=== PATIENT | female | born 1945 | race Caucasian/White ===

== ENCOUNTER → 2020-08-29 | Outpatient (CLI) | payer OTHER | LOC: LABNPT 08:27 | PROVIDERS: ATTEND Family Medicine | DX: Z20.822 Contact with and (suspected) exposure to COVID-19 (principal) | CPT/HCPCS: 87635 ==

== ENCOUNTER 2020-11-29 13:00 | Outpatient (RCR) | payer BC | END 2020-11-29 16:35 | disposition home or self-care (01) | PROVIDERS: ATTEND Family Medicine | DX: J38.5 Laryngeal spasm (principal); M62.838 Other muscle spasm; M54.2 Cervicalgia; R49.0 Dysphonia ==

== ENCOUNTER → 2021-02-07 | Outpatient (CLI) | payer BC ==
--- NOTE | 2021-02-11 13:53 | Diagnostic Imaging Report ---
INDICATION: Routine screening. Correlation is made to prior mammogram 02/11/2020. 2-D and 3-D bilateral screening mammography was performed with CAD. Scattered fibroglandular densities are identified bilaterally. The parenchymal pattern appears stable. There are occasional benign calcifications. There is a benign circumscribed nodule medial right breast. No spiculated mass or malignant appearing microcalcifications are seen. Axillae are unremarkable. IMPRESSION: BI-RADS Category 2 No mammographic features suspicious for malignancy are identified. ACR BI-RADS Category 2: Benign findings. Result letter will be mailed to the patient. Note: At least 10% of breast cancer is not imaged by mammography. Dictated by: Dictated on workstation # [id number]
== END ==
LOC: RAD 10:46
PROVIDERS: ATTEND Nurse Practitioner Family
DX: Z12.31 Encounter for screening mammogram for malignant neoplasm of breast (principal)
CPT/HCPCS: 77063; 77067

== ENCOUNTER → 2022-02-25 | Outpatient (CLI) | payer BC ==
--- NOTE | 2022-02-25 10:03 | Diagnostic Imaging Report ---
INDICATION: Postmenopausal screening COMPARISON: None FINDINGS: AP Spine L1-L4: [BMD (g/cm2): 0.971] [T-Score: -1.9] [Z-Score: -0.6] [BMD Previous: na] [BMD % Change: na] LT Hip Neck: [BMD (g/cm2): 0.803] [T-Score: -1.7] [Z-Score: -0.1] LT Hip Total: [BMD (g/cm2):0.944] [T-Score:-0.5] [Z-Score: 0.9] [BMD Previous: na] [BMD % Change: na] RT Hip Neck: [BMD (g/cm2):0.781] [T-Score:-1.8] [Z-Score:-0.2] RT Hip Total: [BMD (g/cm2):0.917] [T-score:-0.7] [Z-Score:0.7] [BMD Previous:na] [BMD % Change:na] *Indicates significant change from prior examination based on 95% confidence level. World Health Organization criteria for BMD interpretation classify patients as Normal (T-score at or above -1.0), Osteopenic (T-score between -1.0 and -2.5) or Osteoporotic (T-score at or below -2.5). LIMITATIONS AND MODIFICATION: None. FRACTURE RISK (FRAX SCORE): The ten year probability of (%): Major Osteoporotic Fracture: [12.6] Hip Fracture: [3.0] IMPRESSION: 1. Osteopenia (Low bone mass). 2. See below National Osteoporosis Foundation guidelines on when to potentially initiate pharmacologic therapy. Based on the National Osteoporosis Foundation Guidelines, pharmacologic treatment should be initiated in any of the following, unless clinical conditions suggest otherwise: * Any patient with prior fragility fracture of the hip or vertebrae. A spine fracture indicates 5X risk for subsequent spine fracture and 2X risk for subsequent hip fracture. * Osteoporosis (T-score <-2.5). * Postmenopausal women and men age 50 and older with low bone mass/osteopenia (T-score between -1.0 and -2.5) by DXA and 10-year major osteoporotic fracture greater than 20% or a 10-year probability of hip fracture greater than 3%. These fracture risks are supplied above in the FRAX score, if applicable. * Clinician judgement and/or patient preferences may indicate treatment for people with 10-year fracture probabilities above or below these levels. Dictated by: Dictated on workstation # [id number]
--- NOTE | 2022-02-25 12:57 | Diagnostic Imaging Report ---
INDICATION: Routine screening. COMPARISON: 02/07/2021 and 02/13/2020. TECHNIQUE: 2D and 3D bilateral screening mammography was performed with CAD. FINDINGS: Scattered fibroglandular densities are identified bilaterally. There is a circumscribed density that has developed in the lower inner right breast at mid depth. Additional views are recommended. The left breast is unremarkable. No spiculated mass is seen. No malignant-appearing microcalcifications are identified. There are benign calcifications noted. The axillae are unremarkable. IMPRESSION: Right breast density. Additional views are recommended for further evaluation. ACR BI-RADS Category 0: Incomplete. (Needs additional imaging evaluation). Result letter will be mailed to the patient. Note: At least 10% of breast cancer is not imaged by mammography. Dictated by: Dictated on workstation # [id number]
== END ==
LOC: RAD 09:15
PROVIDERS: ATTEND Nurse Practitioner Family
DX: Z12.31 Encounter for screening mammogram for malignant neoplasm of breast (principal); Z13.820 Encounter for screening for osteoporosis; M85.88 Other specified disorders of bone density and structure, other site; Z78.0 Asymptomatic menopausal state
CPT/HCPCS: 77063; 77067; 77080

== ENCOUNTER → 2022-03-05 | Outpatient (CLI) | payer BC ==
--- NOTE | 2022-03-05 13:59 | Diagnostic Imaging Report ---
Indication: Right breast density. Patient presents for additional views. Correlation is made with screening study from 02/25/2022. Unilateral right 2-D and 3-D diagnostic mammography was performed. This includes spot compression CC and MLO views as well as conventional 90 degrees lateral views. CAD is utilized. The current study was also evaluated with a Computer Aided Detection (CAD) system. There is a persistent fairly well-circumscribed nodule in the lower inner right breast approximately 5-6 cm from the nipple. No suspicious calcifications are seen. IMPRESSION: BI-RADS 0 Persistent density lower inner right breast, as described. Further evaluation with ultrasound is recommended and will be performed today. ACR BI-RADS Category 0: Incomplete. (Needs additional imaging evaluation). Result letter will be mailed to the patient. Note: At least 10% of breast cancer is not imaged by mammography. Dictated by: Dictated on workstation # [id number]
--- NOTE | 2022-03-05 17:40 | Diagnostic Imaging Report ---
INDICATION: Right breast density. COMPARISON: Correlation is made with diagnostic mammogram earlier the same day and screening mammogram from 02/25/2022. FINDINGS: Sonographic interrogation of the lower inner right breast demonstrates a simple cyst at the 4:00 location, 5 cm from the nipple, measuring 7 mm x 4 mm x 5 mm. This correlates with the density noted mammographically. No internal vascularity is seen. No other masses are detected. IMPRESSION: Simple cyst at the 4:00 location in right breast, 5 cm from the nipple, corresponding with the mammographic density. The patient may return to routine annual screening mammography. ACR BI-RADS Category 2: Benign findings. Result letter will be mailed to the patient. Note: At least 10% of breast cancer is not imaged by mammography. Dictated by: Dictated on workstation # [id number]
== END ==
LOC: RAD 12:45
PROVIDERS: ATTEND Nurse Practitioner Family
DX: N60.01 Solitary cyst of right breast (principal)

== ENCOUNTER → 2022-04-09 | Outpatient (CLI) | payer BC | END | disposition home or self-care (01) | LOC: PREOP 05:35 | PROVIDERS: ATTEND Internal Medicine | DX: Z01.818 Encounter for other preprocedural examination (principal); R19.5 Other fecal abnormalities ==

== ENCOUNTER 2022-04-18 09:04 | Day surgery (SDC) | payer BC ==
--- NOTE | 2022-04-09 09:12 | HISTORY AND PHYSICAL ---
DATE OF SERVICE: COLONOSCOPY HISTORY AND PHYSICAL HISTORY OF PRESENT ILLNESS: The patient is a 76-year-old white female referred by CLIVE Sneed working for Dr. Dudley. She was referred due to a positive Cologuard. The patient denies abdominal pain, change in bowel habits, melena or bright red blood per rectum or change in weight. She is not aware of any family history for colon cancer. She reports one other colonoscopy over 15 years ago that she does not recall if there are any problems with. 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 She has a history of depression. No known history of cardiovascular disease. FAMILY HISTORY: Father had a history of diabetes and coronary artery disease as well as depression and mother had a history of coronary artery disease with arthritis with no reported malignancy running in the family. PAST SURGICAL HISTORY: She had a in , eye surgery in 2013, tubal ligation in 1986. SOCIAL HISTORY: She is with one child. No past smoking history with occasional small volume alcohol consumption. REVIEW OF SYSTEMS: CONSTITUTIONAL: Denies night sweats, chills, fever, change in weight. PULMONARY: Denies cough, wheezing or shortness of breath. GASTROINTESTINAL: As noted in the HPI. CARDIOVASCULAR: Denies orthopnea, PND, pedal edema, chest discomfort or syncope. PHYSICAL EXAMINATION: GENERAL: Reveals a white female appeared to be in no acute distress. VITAL SIGNS: Weight 172 pounds. Initial blood pressure 170/110, at the end of the interview 145/90, heart rate 70 and regular. HEENT: Unremarkable. Oropharynx clear. CHEST Clear to auscultation. CARDIOVASCULAR: Reveals a regular rate and rhythm without murmur, S3 or S4. ABDOMEN: Soft, supple without tenderness, mass, organomegaly or bruits. Bowel sounds positive. EXTREMITIES: Reveal no cyanosis, clubbing or edema. ASSESSMENT AND PLAN: The patient is being set up for diagnostic colonoscopy due to positive Cologuard. Discussed the ramifications of positive Cologuard and just about 4% chance of actually finding an underlying colon cancer. The patient is concerned about being able to keep the prep down, so she will take 4 mg of Zofran at least a half an hour prior to split dose of colyte as there were no other options covered. Electronic medical record was reviewed, and questions were answered. I thank you for the referral of this pleasant lady. Job ID: [id number] DocumentID: [id number] Dictated Date: 04/02/2022 15:58:10 Supervisor Publications Date: 04/02/2022 16:19:12 Dictated By: GILMA THEODORE MD MTDD
[~2022-04-18] VITALS: Ht 170.2 cm; Wt 79.4 kg
[2022-04-18 09:20] VITALS: BP 125/77
[2022-04-18] MEDS ORDERED: LACTATED RINGERS 1,000 ML IV STA (09:37)
[2022-04-18] MEDS ORDERED: LISI10TA25 PO (09:45)
--- NOTE | 2022-04-18 10:05 | Pre-Op Note & Conscious Sedat ---
Pre-Operative Progress Note Date H&P Reviewed: Apr 18, 2022 Time H&P Reviewed: 10:05 History & Physical: H&P Reviewed, Patient Examed, No changes noted Pre-Op Diagnosis: positive cologuard Conscious Sedation Pre-Proced ASA Score 2 For ASA 3 and 4: Consider anesthesia and medical clearance. Also, for patients with a history of failed moderate sedation consider anesthesia. Airway Lungs Heart ASA score ASA 1: a normal healthy patient ASA 2: a patient with a mild systemic disease (mid diabetes, controlled hypertension, obesity ASA 3: a patient with a severe systemic disease that limits activity (angina, COPD, prior Myocardial infarction) ASA 4: a patient with an incapacitating disease that is a constant threat to life (CHF, renal failure) ASA 5: a moribund patient not expected to survive 24 hrs. (ruptured aneurysm) ASA 6: a declared brain- patient whose organs are being harvested. For emergent operations, add the letter E after the classification Mallampati Classification Grade 2 Sedation Plan Analgesia, Amnesia, Plan communicated to team members, Discussed options with patient/fam, Discussed risks with patient/fam The patient is an appropriate candidate to undergo the planned procedure, sedation, and anesthesia. The patient immediately re-assessed prior to indication. GILMA THEODORE MD Apr 18, 2022 10:05
[2022-04-18] MEDS ORDERED: PROPOFOL INJECTION 50 ML IV ONE (10:37)
[2022-04-18 11:20] VITALS: BP 104/58
[2022-04-18 11:25] VITALS: BP 116/51
--- NOTE | 2022-04-18 11:25 | Progress Note-Post Operative ---
Post-Procedure Note Physician (s)/Resaw Feeder (s) Physician GILMA THEODORE MD Pre-Procedure Diagnosis Pre-Procedure Diagnosis: positive cologuard Post-Procedure Diagnosis Post-operative diagnosis: 3 polyps ablated mid sigmoid hepatic flexure and cecum otherwise normal colon GILMA THEODORE MD Apr 18, 2022 11:25
[2022-04-18 12:00] VITALS: BP 133/60
[2022-04-18 12:09] VITALS: BP 133/60
--- NOTE | 2022-04-18 12:31 | Anesthesia-General Post-Op ---
MAC Patient Condition Mental Status/LOC: Same as Preop Cardiovascular: Satisfactory Nausea/Vomiting: Absent Respiratory: Satisfactory Pain: Controlled Complications: Absent Post Op Complications Complications None Follow Up Care/Instructions Patient Instructions None needed. Anesthesiology Discharge Order Discharge Order Patient is doing well, no complaints, stable vital signs, no apparent adverse anesthesia problems. No complications reported per nursing. CARTER WILBURN CRNA Apr 18, 2022 12:31
--- NOTE | 2022-04-18 13:49 | OPERATIVE REPORT ---
DATE OF SERVICE: COLONOSCOPY SUMMARY INDICATION FOR THE PROCEDURE: Positive Cologuard. DESCRIPTION OF PROCEDURE: The patient was placed in the left lateral decubitus position. Prior to undergoing colonoscopy, digital rectal evaluation was performed. Anal sphincter tone was normal and the perianal reflexes intact. No abnormalities were noted on digital inspection of anal canal or distal rectal vault. The colonoscope was then inserted into the rectum and under direct visualization advanced to cecum. Cecum was identified by identification of the appendiceal orifice and ileocecal valve. A careful inspection was made as colonoscope withdrawn. Quality of prep was fair. FINDINGS: No evidence for internal or external hemorrhoids and the rectum was unremarkable. Present in the mid sigmoid colon was a sessile adenomatous appearing polyp 6 mm in size. It was photographed and biopsied and ablated with hot forceps with no subsequent blood loss. Several small sigmoid diverticulum were present without evidence for diverticulitis. The descending colon, splenic flexure and transverse colon were unremarkable. Present at the hepatic flexure was a sessile adenomatous appearing polyp approximately 5 mm in size. It was photographed and biopsied and ablated with hot forceps with no blood loss. The ascending colon was unremarkable. Adjacent to the ileocecal valve was another sessile 5 mm polyp. It was biopsied and ablated again with no blood loss. The cecum and the colon was otherwise unremarkable. ASSESSMENT: Three sessile polyps were removed today. We will await histopathology report, but considering positive Cologuard, we will likely advocate repeat surveillance colonoscopy in one year. I thank you for the referral of this pleasant lady. Job ID: [id number] DocumentID: [id number] Dictated Date: 04/18/2022 11:21:48 X Ray Developer Date: 04/18/2022 13:48:21 Dictated By: GILMA THEODORE MD
== END 2022-04-18 12:09 | disposition home or self-care (01) ==
LOC: ENDO 09:04
PROVIDERS: ATTEND Internal Medicine
DX: D12.5 Benign neoplasm of sigmoid colon (principal); K63.5 Polyp of colon; K57.30 Diverticulosis of large intestine without perforation or abscess without bleeding; Z88.2 Allergy status to sulfonamides

== ENCOUNTER 2022-12-02 14:00 | Emergency (ER) | payer BC ==
[~2022-12-02] VITALS: Ht 170 cm; Wt 79.3 kg
[~2022-12-02 14:00] MED LIST: LISI10TA25 PO
--- NOTE | 2022-12-02 15:06 | ED Trauma-Multisystem ---
General Chief Complaint: Trauma-Non Activation Stated Complaint: FALL | RT WRIST INJ Nursing Triage Note: PT AMBULATORY TO ER WITH FAMILY. REPORTS FELL ON CONCRETE OUTSIDE OF HER HOME, DENIES LOC, DENIES TAKING BLOOD THINNERS, DID HIT HER HEAD, SMALL ABRASION NOTED TO R FOREHEAD. PT C/O PAIN TO R SHOULDER/ARM/HAND AND L FOOT. Source of Information: Patient Exam Limitations: No Limitations History of Present Illness Date Seen by Provider: Dec 02, 2022 Time Seen by Provider: 14:50 Initial Comments 76-year-old female presents to the ED after a fall. She reports she tripped on her driveway and fell twice on concrete. She landed on her right side. She states she hit the right side of her head. She also is complaining of left foot pain. She is complaining of pain in her right wrist, and right elbow. She does not take any blood thinners. She did not lose consciousness. She denies any vomiting. Past medical history includes spasmodic dysphonia. She takes lorazepam and Wellbutrin. Allergies and Home Medications Allergies Coded Allergies: Sulfa (Sulfonamide Antibiotics) (Unverified Allergy, Unknown, 04/18/22) Patient Home Medication List Home Medication List Reviewed: Yes Lisinopril (Lisinopril) 10 Mg Tablet, 10 MG PO DAILY, (Reported) Entered as Reported by: JASON MEJÍA on 04/18/22 0934 Tramadol HCl (Tramadol HCl) 50 Mg Tablet, 50 MG PO Q4H PRN for PAIN Prescribed by: Courtney Smith on 12/02/22 1738 Review of Systems Review of Systems Constitutional: see HPI Past Igprmnw-[id number]-[id number] Hx Patient Social History Tobacco Use?: No Use of E-Cig and/or Vaping dev: No Substance use?: No Alcohol Use?: No Pt feels they are or have been: No Immunizations Up To Date First/Initial COVID19 Vaccinat: RECEIVED, UNK WHEN Second COVID19 Vaccination Mello: NO Third COVID19 Vaccination Date: NO COVID19 Vaccine Prison Officer: UNK Seasonal Allergies Seasonal Allergies: No Past Medical History Surgeries: Yes Section, Eye Surgery, Tubal Ligation Respiratory: No Cardiac: No Neurological: No Genitourinary: No Gastrointestinal: No Musculoskeletal: No Endocrine: No HEENT: No Cancer: No Psychosocial: Yes Depression Integumentary: No Blood Disorders: No Adverse Reaction/Blood Tranf: No Physical Exam Vital Signs Vital Signs - First Documented 12/02/22 14:45 Temp 36.4 Pulse 79 Resp 18 B/P (MAP) 173/75 (107) Pulse Ox 98 O2 Delivery Room Air Height, Weight, BMI Height: '" Weight: lbs. oz. kg; 27.00 BMI Method: General Appearance: No Apparent Distress, WD/WN Neck: Full Range of Motion, Normal Inspection, Non Tender, Supple; No Tender Lateral, No Tender Midline Cardiovascular: Regular Rate, Rhythm, No Edema, No Gallop, No JVD, No Murmur, Normal Peripheral Pulses Respiratory: Lungs Clear, Normal Breath Sounds, No Accessory Muscle Use, No Respiratory Distress Back: Normal Inspection, No Vertebral Tenderness Extremity: Normal Capillary Refill, Normal Range of Motion, Swelling (Left foot), Other (Normal range of motion of right wrist, right elbow, right shoulder, pain with palpation of right wrist, right elbow) Neurologic/Psychiatric: Alert, Normal Mood/Affect Skin: Normal Color, Warm/Dry Progress/Results/Core Measures Results/Orders My Orders Orders - COURTNEY SMITH APRN Elbow, Right, 3 Views (12/02/22 15:03) Wrist, Right, 3 Views Or More (12/02/22 15:03) Ct Head/Cervical Spine Wo (12/02/22 15:03) Foot, Left, 3 Views (12/02/22 15:06) Ankle, Left, 3 Views (12/02/22 15:06) Vital Signs/I&O 12/02/22 12/02/22 14:45 14:45 Temp 36.4 36.4 Pulse 79 79 Resp 18 18 B/P (MAP) 173/75 (107) 173/75 (107) Pulse Ox 98 O2 Delivery Room Air Room Air Blood Pressure Mean: 107 Progress Progress Note : Time: 15:10 Progress Note Seen and evaluated, resting comfortably in recliner, no acute distress. Based on exam and symptoms, x-ray of right wrist, right elbow, left foot left ankle ordered. CT head and C-spine ordered. 1630 imaging reviewed. 1730 placed in splint and boot Departure Impression Primary Impression: Fall Qualified Codes: W19.XXXA - Unspecified fall, initial encounter Additional Impressions: Radial neck fracture Qualified Codes: S52.134A - Nondisplaced fracture of neck of right radius, initial encounter for closed fracture Metatarsal bone fracture Qualified Codes: S92.355A - Nondisplaced fracture of fifth metatarsal bone, left foot, initial encounter for closed fracture Departure-Patient Inst. Decision time for Depature: 17:35 Referrals: GUILHERME BA MD (PCP/Family) Primary Care Physician CARTER MCNALLY MD Patient Instructions: Foot Fracture ED, Wrist Fracture (DC) Add. Discharge Instructions: Follow-up with orthopedics. Call them tomorrow to schedule an appointment. Wear the splint at all times on your arm. Do not get it wet, need to cover it when showering. Take tramadol as needed for pain. This may make you drowsy. You may also take ibuprofen or Tylenol as needed for pain. Return for severe pain, numbness or tingling in your fingers or toes, or any other new, concerning, or worsening symptoms. All discharge instructions reviewed with patient and/or family. Voiced understanding. Scripts Tramadol HCl (Tramadol HCl) 50 Mg Tablet 50 MG PO Q4H PRN for PAIN, #15 TAB 0 Refills Prov: COURTNEY SMITH APRN 12/02/22 COURTNEY SMITH APRN Dec 02, 2022 15:06
--- NOTE | 2022-12-02 15:32 | Diagnostic Imaging Report ---
PROCEDURE: CT head and CT cervical spine without contrast. TECHNIQUE: Multiple contiguous axial images were obtained through the brain and cervical spine without the use of intravenous contrast. Sagittal and coronal reformations through the cervical spine were then performed. Auto Exposure Controls were utilized during the CT exam to meet ALARA standards for radiation dose reduction. INDICATION: Head and neck trauma COMPARISON: None available. FINDINGS: Head: No hyperdense hemorrhage or space-occupying mass. No hydrocephalus or midline shift. No evidence of territorial infarct. Basilar cisterns are patent. No focal scalp swelling. No skull fracture. The paranasal sinuses and mastoid air cells are clear. Cervical spine: No acute fracture or traumatic malalignment. 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 No high-grade spinal canal stenosis. Facet osteoarthritis and uncovertebral joint hypertrophy cause severe bilateral neuroforaminal stenosis at C4-C5, C5-C6 and C6-C7. Airway is patent. No cervical lymphadenopathy. No concerning thyroid nodule. IMPRESSION: 1. No acute intracranial process or skull fracture. 2. No acute fracture or traumatic malalignment of the cervical spine. Dictated by: Dictated on workstation # [id number]
--- NOTE | 2022-12-02 15:37 | Diagnostic Imaging Report ---
Indication: Right elbow pain 3 views of the right elbow show elevated ventral fat pad. There is a nondisplaced fracture of the radial neck. IMPRESSION: Nondisplaced radial neck fracture with associated joint effusion. Dictated by: Dictated on workstation # [id number]
--- NOTE | 2022-12-02 15:38 | Diagnostic Imaging Report ---
Indication: Right wrist pain 3 views of the right wrist show no fracture, dislocation or other acute abnormalities. IMPRESSION: No acute abnormality seen in the right wrist Dictated by: Dictated on workstation # [id number]
--- NOTE | 2022-12-02 15:39 | Diagnostic Imaging Report ---
Indication: Left foot injury 3 views of left foot show nondisplaced avulsion fracture of the base of the 5th metatarsal. The remainder the study is unremarkable. IMPRESSION: Nondisplaced avulsion fracture of the base of the 5th metatarsal. Dictated by: Dictated on workstation # [id number]
--- NOTE | 2022-12-02 15:40 | Diagnostic Imaging Report ---
Indication: Left ankle injury 3 views of left ankle show a nondisplaced avulsion fracture of the base of the 5th metatarsal. Ankle mortise is preserved. There are no ankle fractures. IMPRESSION: Unremarkable ankle. There is an avulsion fracture the base of the 5th metatarsal. Dictated by: Dictated on workstation # [id number]
[2022-12-02] MEDS ORDERED: TRM50T PO (17:37)
[2022-12-02 17:47] VITALS: BP 163/78
== END 2022-12-02 17:47 | disposition home or self-care (01) ==
LOC: EDUNIT# 14:00 → ER 14:02
DX: S92.355A Nondisplaced fracture of fifth metatarsal bone, left foot, initial encounter for closed fracture (principal); S52.134A Nondisplaced fracture of neck of right radius, initial encounter for closed fracture; Z28.311 Partially vaccinated for COVID-19; W01.198A Fall on same level from slipping, tripping and stumbling with subsequent striking against other object, initial encounter
CPT/HCPCS: 29105; 29125; 70450; 72125; 73080; 73110; 73610; 73630

== ENCOUNTER → 2023-02-20 | Outpatient (RCR) | payer BC ==
[~2023-02-20] MED LIST changes: +TRM50T PO
== END | disposition home or self-care (01) ==
PROVIDERS: ATTEND Family Medicine Sports Medicine
DX: S52.134D Nondisplaced fracture of neck of right radius, subsequent encounter for closed fracture with routine healing (principal); W19.XXXD Unspecified fall, subsequent encounter

== ENCOUNTER → 2023-03-09 | Outpatient (CLI) | payer BC ==
--- NOTE | 2023-03-09 16:20 | Diagnostic Imaging Report ---
INDICATION: Routine screening. COMPARISON: 02/25/2022 and 02/07/2021. TECHNIQUE: 2D and 3D bilateral screening mammography was performed with CAD. FINDINGS: Scattered fibroglandular densities are identified bilaterally. The nodular density noted previously in the medial right breast appears stable. Both breasts show additional benign-appearing nodules which appear stable. No spiculated mass or malignant-appearing microcalcifications are seen. There are occasional benign calcifications. The axillae are unremarkable. IMPRESSION: No mammographic features suspicious for malignancy are identified. ACR BI-RADS Category 2: Benign findings. Result letter will be mailed to the patient. Note: At least 10% of breast cancer is not imaged by mammography. Dictated by: Dictated on workstation # [id number]
== END ==
LOC: RAD 14:38
PROVIDERS: ATTEND Nurse Practitioner Family
DX: Z12.31 Encounter for screening mammogram for malignant neoplasm of breast (principal)
CPT/HCPCS: 77063; 77067

== ENCOUNTER 2023-04-22 06:59 | Outpatient (CLI) | payer BC ==
[~2023-04-22] VITALS: Ht 170 cm; Wt 78.0 kg
[2023-04-22] MEDS ORDERED: LORA-405 PO (10:39)
[2023-04-22] MEDS ORDERED: BUPR150T24 PO (10:39)
[2023-04-22] MEDS ORDERED: RT-ALBUINH INH (10:39)
[2023-04-22] MEDS ORDERED: EZET10TA17 PO (10:39)
== END 2023-04-22 10:42 | disposition home or self-care (01) ==
LOC: PREOP 06:59
PROVIDERS: ATTEND Internal Medicine
DX: Z01.818 Encounter for other preprocedural examination (principal)

== ENCOUNTER 2023-05-01 08:56 | Day surgery (SDC) | payer BC ==
[~2023-05-01] VITALS: Ht 170 cm; Wt 78.0 kg
[~2023-05-01 08:56] MED LIST changes: +BUPR150T24 PO; +EZET10TA17 PO; +LORA-405 PO; +RT-ALBUINH INH
[2023-05-01] MEDS ORDERED: LACTATED RINGERS 1,000 ML 1,000 ML IV STA (09:06)
[2023-05-01 09:34] VITALS: BP 128/83
--- NOTE | 2023-05-01 09:39 | Pre-Op Note & Conscious Sedat ---
Pre-Operative Progress Note Date H&P Reviewed: May 01, 2023 Time H&P Reviewed: 09:39 History & Physical: H&P Reviewed, Patient Examed, No changes noted Pre-Op Diagnosis: Hx of colon polyps Moderate Sedation PreProcedure ASA Score 2 Airway Lungs Heart ASA score ASA 1: a normal healthy patient ASA 2: a patient with a mild systemic disease (mid diabetes, controlled hypertension, obesity ASA 3: a patient with a severe systemic disease that limits activity (angina, COPD, prior Myocardial infarction) ASA 4: a patient with an incapacitating disease that is a constant threat to life (CHF, renal failure) ASA 5: a moribund patient not expected to survive 24 hrs. (ruptured aneurysm) ASA 6: a declared brain- patient whose organs are being harvested. For emergent operations, add the letter E after the classification Mallampati Classification Grade 2 Sedation Plan Analgesia, Amnesia, Plan communicated to team members, Discussed options with patient/fam, Discussed risks with patient/fam The patient is an appropriate candidate to undergo the planned procedure, sedation, and anesthesia. The patient immediately re-assessed prior to indication. GILMA THEODORE MD May 01, 2023 09:39
--- NOTE | 2023-05-01 11:08 | Anesthesia-General Post-Op ---
MAC Patient Condition Mental Status/LOC: Same as Preop Cardiovascular: Satisfactory Nausea/Vomiting: Absent Respiratory: Satisfactory Pain: Controlled Complications: Absent Post Op Complications Complications None Follow Up Care/Instructions Patient Instructions None needed. Anesthesiology Discharge Order Discharge Order Patient is doing well, no complaints, stable vital signs, no apparent adverse anesthesia problems. No complications reported per nursing. BHAVANA CHANG CRNA May 01, 2023 11:08
[2023-05-01 11:10] VITALS: BP 104/61
--- NOTE | 2023-05-01 11:12 | Progress Note-Post Operative ---
Post-Procedure Note Physician (s)/Etl Tester (s) Physician GILMA THEODORE MD Pre-Procedure Diagnosis Pre-Procedure Diagnosis: Hx of colon polyps Post-Procedure Diagnosis Post-operative diagnosis: Prior to undergoing colonoscopy digital rectal evaluation was performed. Anal suture tone was normal and the perianal reflexes intact. No abnormalities were noted on digital inspection anal canal or distal rectal vault. The colonoscope was then inserted into the rectum and under direct visualization advanced to the cecum. The cecum was identified by the indication of the ileocecal valve and cecal strap. Photographic documentation was obtained. A careful inspection was made as the colonoscope was withdrawn. Quality prep was good. Findings there are no evidence for internal/external hemorrhoids and the rectum was unremarkable. Moderate sigmoid diverticular disease was present without evidence of diverticulitis. The descending colon and splenic flexure transverse colon hepatic flexure and ascending colon were unremarkable. A 2 mm sessile polyp was noted and subsequent biopsy and cauterized from the cecum. No significant blood loss is noted. A/P 1. 1 diminutive polyp was removed from cecum with no other evidence for neoplasia. Would advocate consideration for repeat surveillance colonoscopy in 3 years as long as the patient is overall health is deemed to be good Considering age. 2. Again moderate diverticular disease was noted confined to the sigmoid colon without evidence for diverticulitis. CC: Dr. Alina BA MD. GILMA THEODORE MD May 01, 2023 11:12
[2023-05-01 11:15] VITALS: BP 111/61
[2023-05-01 11:20] VITALS: BP 124/58
[2023-05-01 11:38] VITALS: BP 124/58
--- NOTE | 2023-05-11 08:50 | HISTORY AND PHYSICAL ---
DATE OF SERVICE: 05/01/2023 HISTORY OF PRESENT ILLNESS: The patient is a 77-year-old white female referred by Dr. Dudley for followup colonoscopy due to past history of positive Cologuard as well as colon polyps. She underwent colonoscopy a little over a year ago for positive Cologuard, at which time she had a tubular adenoma 6 mm, sessile, removed from the sigmoid colon and had a hyperplastic polyp removed from the ileocecal valve and the hepatic flexure, and she has not felt well since that time, has had no rectal bleeding, change in bowel habits or abdominal pain. 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 FAMILY HISTORY: She is not aware of any family history for colon cancer. Father with history of diabetes and coronary artery disease as well as depression and mother had a history of coronary artery disease with arthritis. PAST SURGICAL HISTORY: She has had no surgeries in the past year since her colonoscopy. She had a in 1985, eye surgery in 2013 and tubal ligation in 1986. SOCIAL HISTORY: She has no past smoking or any significant alcohol consumption history. She is , with adult child. PHYSICAL EXAMINATION: GENERAL: Reveals a white female, appeared to be in no acute distress. VITAL SIGNS: Initial blood pressure 168/80, reported white coat hypertension, at the end of the interview down to 146/74, weight 170 pounds, down 2 pounds from a year ago. HEENT: Unremarkable. Sclerae nonicteric. CHEST: Clear to auscultation. CARDIOVASCULAR: Reveals regular rate and rhythm. Soft. I-II/ systolic ejection murmur heard best at the second right intercostal space without evidence of pulsus parvus or tardus. No S3 or S4 noted. ABDOMEN: Soft, supple without mass, organomegaly, or tenderness. EXTREMITIES: No cyanosis, clubbing or edema. ASSESSMENT AND PLAN: The patient is being set up for surveillance colonoscopy due to past Cologuard positive status as well as history of colon polyps as noted in the HPI. Prep instructions were given and questions were answered. I thank you for the referral of this pleasant lady. Job ID: [id number] DocumentID: [id number] Dictated Date: 04/20/2023 17:04:48 [employer] Date: 04/20/2023 17:18:00 Dictated By: GILMA THEODORE MD <Dictated by GILMA THEODORE MD> <Electronically signed by GILMA THEODORE MD> 04/21/23 [id number] MTDD
== END 2023-05-01 11:45 | disposition home or self-care (01) ==
LOC: ENDO 08:56
PROVIDERS: ATTEND Internal Medicine
DX: Z12.11 Encounter for screening for malignant neoplasm of colon (principal); D12.0 Benign neoplasm of cecum; K57.30 Diverticulosis of large intestine without perforation or abscess without bleeding